=== PATIENT | male | born 1995 | race Caucasian/White ===

== ENCOUNTER 2017-05-08 11:31 | Emergency (ER) | payer OTHER ==
[2017-05-08 11:42] VITALS: RESP 16; TEMP 98.1
[2017-05-08 12:09] LABS: PLATELET COUNT 254 10^3/uL (150-400)
--- NOTE | 2017-05-08 12:46 | EDPHY ---
H & P Stated Complaint: witnessed seizure [employer]-fell out of chair--hx one prior seiz Time Seen by Provider: 05/08/17 12:04 HPI/ROS: CHIEF COMPLAINT: Witnessed seizure HISTORY OF PRESENT ILLNESS: The patient presents the ED after witnessed tonic- clonic seizure. The patient has a history of seizure disorder x1. This occurred in August. It was unprovoked. The patient had a unremarkable MRI scan EEG by his report. The patient takes no regular medications. The patient denies significant alcohol consumption. He denies any recreational drug use aside from marijuana. In the emergency department today, the patient does report pain secondary to a tongue contusion from his seizure. Additionally, the patient complains of mid thoracic back pain. Patient denies significant headache, numbness or weakness. The patient denies any cervical neck pain or additional traumatic injury. REVIEW OF SYSTEMS: A comprehensive 10 point review of systems is otherwise negative aside from elements mentioned in the history of present illness. Source: Patient Exam Limitations: No limitations - Personal History Current Tetanus/Diphtheria Vaccine: Unsure Current Tetanus Diphtheria and Acellular Pertussis (TDAP): Unsure - Medical/Surgical History Hx Asthma: No Hx Chronic Respiratory Disease: No Hx Diabetes: No Hx Cardiac Disease: No Hx Renal Disease: No Hx Cirrhosis: No Hx Alcoholism: No Hx HIV/AIDS: No Hx Splenectomy or Spleen Trauma: No Other PMH: one prior seizure 09/14 without known cause - Social History Smoking Status: Never smoked - Physical Exam Exam: General Appearance: Alert, slightly postictal, no acute distress Head: Atraumatic Eyes: Pupils equal, round, reactive ENT, Mouth: No hemotympanum, no oral trauma, tongue abrasion and contusion noted Neck: Nontender, trachea midline Respiratory: No chest wall tender, subcutaneous air, lungs clear bilaterally Cardiovascular: Regular rate and rhythm Abdomen: Abdomen is soft and nontender, pelvis stable Skin: No lacerations, No abrasion Back: Tenderness to palpation in the mid thoracic spine noted Extremities: Nontender, full range of motion Neurological: A&Ox3, normal motor function, normal sensory exam Constitutional: Initial Vital Signs Temperature (C) 36.7 C 05/08/17 11:40 Heart Rate 97 05/08/17 11:40 Respiratory Rate 16 05/08/17 11:40 Blood Pressure 129/75 H 05/08/17 11:40 O2 Sat (%) 98 05/08/17 11:40 O2 Delivery Mode Room Air Allergies/Adverse Reactions: No Known Allergies Allergy (Unverified 05/08/17 11:39) Home Medications: Medication Instructions Recorded oxyCODONE/APAP /325 [Percocet 1 - 2 tab PO Q6-8PRN PRN #20 tab 05/08/17 5/325 (RX)] Medical Decision Making - Diagnostics Imaging Results: Imaging Impressions Thoracic Spine X-Ray 05/08/17 12:07 Impression: 1. Multilevel compression fractures from T3 through T9. 2. Sigmoid-shaped thoracolumbar scoliosis. Consider ancillary CT or MR imaging for further assessment. Findings were discussed with Camacho Schwarz MD at 12:50, on 05/08/2017. Thoracic Spine CT 05/08/17 12:52 Impression: 1. Minimal to moderate compression fractures from T3 through T8, including moderate compression fractures at T4 and T6 with minimal retropulsion without significant spinal canal narrowing. 2. Trace anterolisthesis of T5 on T6. Findings discussed with Dr. Camacho Schwarz on 05/08/2017 at 13:31. ED Course/Re-evaluation: The patient presents to the ED after a recurrent unprovoked seizure. He has a history of seizure x1 which occurred last year. The patient is not currently on any anti-seizure medications. The patient complained of fairly significant thoracic pain which prompted imaging of his thoracic spine that demonstrated compression fractures of T3 through T8 without significant retropulsion. The patient was noted to be intact neurologically in his lower extremities. The patient was noted to have a decreased CO2 consistent with his history of seizure. I did brigidabside Dr. Amanda Echols from Neurosurgery who recommends a CTL brace which was ordered with [facility] at 2:00 p.m.. Neurosurgery will be happy to see the patient in follow-up in the next week. The patient has been referred to our on-call neurologist for a follow-up visit. He will be given customary seizure aftercare instructions and advised not to drive or participate in dangerous activities until cleared to do so by Neurology. The patient was re-evaluated at 2:40 p.m.. His brace has been applied by [facility]. The patient will be discharged home with a prescription for Percocet. He is given the contact number of our on-call neurologist Dr. Milian and Dr. Amanda Echols our neurosurgeon. Differential Diagnosis: Differential diagnosis considered includes thoracic compression fracture, seizure, status epilepticus, spinal cord injury, medication side effect - Data Points Laboratory Results: Laboratory Results 05/08/17 12:03 05/08/17 12:03 05/08/17 05/08/17 12:03 12:03 WBC 20.58 10^3/uL H 10^3/uL (3.80-9.50) RBC 5.46 10^6/uL 10^6/uL (4.40-6.38) Hgb 16.9 g/dL g/dL (13.7-17.5) Hct 51.7 % H % (40.0-51.0) MCV 94.7 fL fL (81.5-99.8) MCH 31.0 pg pg (27.9-34.1) MCHC 32.7 g/dL g/dL (32.4-36.7) RDW 13.1 % % (11.5-15.2) Plt Count 254 10^3/uL 10^3/uL (150-400) MPV 11.0 fL fL (8.7-11.7) Neut % (Auto) Not Reported Lymph % (Auto) Not Reported [place] % (Auto) Not Reported Eos % (Auto) Not Reported Baso % (Auto) Not Reported Nucleat RBC Rel Count 0.0 % % (0.0-0.2) Absolute Neuts (auto) Not Reported Absolute Lymphs (auto) Not Reported Absolute Monos (auto) Not Reported Absolute Eos (auto) Not Reported Absolute Basos (auto) Not Reported Absolute Nucleated RBC 0.00 10^3/uL 10^3/uL (0-0.01) Immature Gran % Not Reported Seg Neutrophils % 56 % % Band Neutrophils % 3 % % Lymphocytes % 39 % % Monocytes % 2 % % Immature Gran # Not Reported Absolute Seg Neuts 11.52 10^/uL H 10^/uL (1.70-6.50) Absolute Band Neuts 0.62 10^3/uL 10^3/uL (0.00-0.70) Absolute Lymphocytes 8.03 10^3/uL H 10^3/uL (1.00-3.00) Absolute Monocytes 0.41 10^3/uL 10^3/uL (0.30-0.80) RBC/WBC/PLT Morphology NORMAL (NORMAL) Platelet Estimate ADEQUATE (ADEQ) Smear Review By Pending Sodium 151 mEq/L H mEq/L (134-144) Potassium 4.1 mEq/L mEq/L (3.5-5.2) Chloride 105 mEq/L mEq/L (97-110) Carbon Dioxide 8 mEq/l L* mEq/l (22-31) Anion Gap 38 mEq/L H mEq/L (8-16) BUN 10 mg/dL mg/dL (7-23) Creatinine 1.1 mg/dL mg/dL (0.7-1.3) Estimated GFR > 60 Glucose 145 mg/dL H mg/dL (70-100) Calcium 10.4 mg/dL mg/dL (8.5-10.4) Medications Given: Discontinued Medications Acetaminophen (Tylenol) 1,000 mg PO EDNOW ONE Stop: 05/08/17 13:19 Last Admin: 05/08/17 13:48 Dose: 1,000 mg Sodium Chloride (Ns) 1,000 mls @ 0 mls/hr IV EDNOW ONE; Wide Open PRN Reason: Protocol Stop: 05/08/17 13:57 Last Admin: 05/08/17 14:18 Dose: 1,000 mls Morphine Sulfate (Morphine) 5 mg IVP EDNOW ONE Stop: 05/08/17 13:36 Last Admin: 05/08/17 13:45 Dose: 5 mg Departure - Departure Disposition: Home, Routine, Self-Care Clinical Impression: Seizure disorder, Seizure, Thoracic compression fracture Condition: Good Instructions: Vertebral Compression Fracture (ED), Recurrent Seizures in Adults (ED) Additional Instructions: 1. No driving, dangerous activities such as riding a ski lift, swimming in a pool or other behavior that could put you or someone else at risk in the event of a recurrent seizure. You will need to be cleared by a neurologist to resume these activities. 2. Please return to the ED for recurrent seizure, headache, numbness, weakness , altered mental status or other concerns. 3. Please follow up with neurologist you have been referred to this week to schedule a follow-up appointment. 4. Brace as needed for comfort. 5. Please follow up with Dr. Amanda Echols from Neurosurgery for a recheck within the next week. Referrals: Amanda Echols DO [Doctor of Osteopathy] - As per Instructions Erick Milian DO [Doctor of Osteopathy] - As per Instructions Prescriptions: oxyCODONE/APAP 5/325 [Percocet 5/325 (RX)] 1 - 2 tab PO Q6-8PRN PRN #20 tab PRN Reason: for pain
[2017-05-08] MEDS ORDERED: ACETAMINOPHEN 500 MG TAB PO ONE (13:18)
[2017-05-08] MEDS ORDERED: NS 1,000 ML IV ONE (13:56)
[2017-05-08 15:27] VITALS: BP 112/66; PULSE 87; O2SAT 98
== END 2017-05-08 15:26 | disposition home or self-care (01) ==
DX: S22.030A Wedge compression fracture of third thoracic vertebra, initial encounter for closed fracture (principal); S22.070A Wedge compression fracture of T9-T10 vertebra, initial encounter for closed fracture; G40.909 Epilepsy, unspecified, not intractable, without status epilepticus; E86.9 Volume depletion, unspecified; W07.XXXA Fall from chair, initial encounter
CPT/HCPCS: 96374

== ENCOUNTER → 2017-06-08 | Outpatient (CLI) | payer OTHER | LOC: FIMAGING 09:56 | PROVIDERS: ATTEND Neurological Surgery | DX: S22.000D Wedge compression fracture of unspecified thoracic vertebra, subsequent encounter for fracture with routine healing (principal); G40.89 Other seizures ==

== ENCOUNTER → 2017-06-13 | Outpatient (CLI) | payer OTHER ==
--- NOTE | 2017-06-13 14:52 | CPEEG ---
[f rep st] ELECTROENCEPHALOGRAM ELECTROENCEPHALOGRAM DATE OF STUDY: 06/13/2017 INTERPRETATION: This 4-hour video EEG recording is normal. There were no potentially epileptogenic abnormalities present during the recording. There were no clinical events recorded during the video EEG monitoring session. REPORT: This 4 hour video EEG contains 10 Hz alpha activity to the posterior head regions. There wa s no abnormal activation at rest, during hyperventilation or photic stimulation. The patient became drowsy and fell into sustained sleep during the study. There was no abnormal activation during drows iness, sleep, or during times of arousal. No clinical events were recorded during the video EEG allyson toring session. /[id number]/MODL
== END ==
LOC: FCPNEURO 07:38
PROVIDERS: ATTEND Psychiatry & Neurology Neurology
DX: G40.109 Localization-related (focal) (partial) symptomatic epilepsy and epileptic syndromes with simple partial seizures, not intractable, without status epilepticus (principal)

== ENCOUNTER → 2018-04-03 | Outpatient (CLI) | payer OTHER ==
--- NOTE | 2018-04-06 10:41 | CPEEG ---
FOUR-HOUR VIDEO EEG DATE OF STUDY: 04/03/2018 INTERPRETATION: This 4-hour video EEG recording is essentially normal. There were no definite poten tially epileptogenic abnormalities present in the awake or sleep recordings. During the video EEG mo nitoring session, the patient did not have any clinical events. REPORT: This 4-hour video EEG contains 10 Hz alpha activity over the posterior head regions. There was no abnormal activation at rest, during photic stimulation, nor hyperventilation. The patient bec hong drowsy and fell into sustained sleep during the study. During drowsiness, there was bitemporal t heta activity, which is a normal drowsy variant. There was no abnormal epileptiform activation durin g drowsiness, sustained sleep, or during times of arousal. The patient did not have any clinical events during the video EEG monitoring session. /[id number]/MODL
== END ==
LOC: FCPNEURO 07:40
PROVIDERS: ATTEND Psychiatry & Neurology Neurology
DX: G40.109 Localization-related (focal) (partial) symptomatic epilepsy and epileptic syndromes with simple partial seizures, not intractable, without status epilepticus (principal)